=== PATIENT | male | born 1960 | race Caucasian/White ===

== ENCOUNTER 2017-05-22 07:14 | Inpatient (IN) | payer OTHER ==
--- NOTE | 2017-05-15 16:53 | HP ---
HISTORY AND PHYSICAL: DATE OF ADMISSION/SURGERY: 05/22/17 DATE OF OFFICE VISIT: 05/14/17 SURGEON: Michelle Levi MD * (DICTATED BY NIKKO GONZALEZ) PROCEDURE: Right total hip arthroplasty. CHIEF COMPLAINT: Right hip pain. HISTORY OF PRESENT ILLNESS: Mr. Dc is a 57-year-old gentleman with complaints of right hip pain secondary to end-stage osteoarthritis. He has failed conservative treatment and elected to proceed with a right total hip arthroplasty, which is scheduled for 05/22/[address] Levi. PAST MEDICAL HISTORY: Hypertension, obesity. PAST SURGICAL HISTORY: Tonsillectomy, adenoidectomy. CURRENT MEDICATIONS: 1. Percocet. 2. Lisinopril 20 mg daily. 3. Chlorthalidone 25 mg half tab daily. 4. Multivitamin. ALLERGIES: None. FAMILY HISTORY: Hypertension. SOCIAL HISTORY: This is a 57-year-old gentleman. He lives with his . He does not smoke, use drugs, or alcohol. REVIEW OF SYSTEMS: A complete 14-point review of systems was reviewed with the patient, it was all negative and noncontributory. PHYSICAL EXAMINATION GENERAL: He is well developed, well nourished, in no acute distress. VITAL SIGNS: He stands 6 feet 3 inches tall, weighs 223 pounds. His blood pressure is 138/96, his heart rate is 68. HEENT: Normocephalic, atraumatic. NECK: Supple. No palpable lymph nodes. PULMONARY: Lungs are clear to auscultation bilaterally. CARDIO: Regular rate and rhythm. Strong S1, S2. ABDOMEN: Soft, nontender, and nondistended. MUSCULOSKELETAL: Right lower extremity, the skin is intact. There are no open wounds or abrasions. He has decreased internal and external rotation of the right hip. Negative straight leg raise. 2+ dorsalis pedis pulses. His lower extremity muscle group strengths are intact at 5/5. He has intact sensation. He walks with an antalgic-type gait favoring his right hip. NEUROLOGICAL: He is alert and oriented x3. Cranial nerves II through XII are intact. ASSESSMENT AND PLAN: Mr. Dc is a 57-year-old gentleman with complaints of right hip pain secondary to end-stage osteoarthritis. He has failed conservative management and elected to proceed with a right total hip arthroplasty, which is scheduled for 05/22/17with Dr. Levi. Dr. Levi discussed the risks and benefits of the surgery at today's visit and all of his questions were answered. Coumadin, Colace, and Percocet were sent to his pharmacy for postoperative pain control and DVT prophylaxis. He will follow with Dr. Levi 2 weeks after the surgery. NIKKO GONZALEZ [id number]/[facility] #: [id number] NBA
[~2017-05-22 07:14] MED LIST: Buffered Lidocaine 0.9% SYRIN* 5 ML/SYR SYRINGE INTRADERM ONE; Famotidine IV* 10 MG/ML 2 ML (20 mg) IV ONE; Gabapentin CAP(*) 300 MG PO ONE
[2017-05-22] MEDS ORDERED: ceFAZolin 2 GM PREMIX (*) 2 GM/50 ML BAG IVPB ONE (09:36)
[2017-05-22] MEDS ORDERED: Gabapentin CAP(*) 300 MG ONE (09:36)
[2017-05-22] MEDS ORDERED: Famotidine IV* 10 MG/ML 2 ML (20 mg) ONE (09:36)
[2017-05-22] MEDS ORDERED: Buffered Lidocaine 0.9% SYRIN* 5 ML/SYR SYRINGE ONE (09:36)
[2017-05-22] MEDS ORDERED: ceFAZolin 1 GM in Dextrose (*) 1 GM/50 ML BAG IVPB ONE (09:36)
[2017-05-22] MEDS ORDERED: KETAMINE HCL* 50 MG/ML 10 ML VIAL ONE (10:04)
[2017-05-22] MEDS ORDERED: fentaNYL* 50 MCG/ML 2 ML VIAL (100 MCG VIAL) ONE (10:04)
[2017-05-22] MEDS ORDERED: Midazolam* 1 MG/ML 2 ML VIAL (2 MG) ONE ×3 (10:04→13:05)
[2017-05-22] MEDS ORDERED: Morphine PF AMP (0.5MG/ML)* 5 MG/10 ML AMP ONE (11:52)
[2017-05-22] MEDS ORDERED: Phenylephrine IV* 40 MCG/ML 10 ML SYRINGE ONE (12:45)
[2017-05-22] MEDS ORDERED: Phenylephrine INJ* 10 MG/ML 1 ML VIAL (10 MG) ONE ×2 (12:55→13:00)
[2017-05-22] MEDS ORDERED: Ondansetron INJ* 2 MG/ML VIAL ONE ×2 (13:25→18:12)
[2017-05-22] MEDS ORDERED: Ketorolac INJ* 30 MG/ML 1 ML VIAL ONE (13:25)
[2017-05-22] MEDS ORDERED: DiMENhydriNATE IV* 50 MG/ML VIAL ONE (13:25)
[2017-05-22] MEDS ORDERED: Dexamethasone IV* 4 MG/ML 1 ML (4 MG) ONE (13:25)
[2017-05-22] MEDS ORDERED: Propofol* 10 MG/ML 20 ML BTL IV PUSH ONE ×3 (13:25→14:45)
[2017-05-22] MEDS ORDERED: Glycopyrrolate IV* 0.2 MG/ML 1 ML VIAL ONE (13:28)
[2017-05-22] MEDS ORDERED: HYDROmorphone INJ* 1 MG/ML CARPUJECT SYRINGE IV PRN (13:40)
[2017-05-22] MEDS ORDERED: Naloxone* 0.4 MG/ML 1 ML VIAL IV PRN ×2 (13:40→13:49)
[2017-05-22] MEDS ORDERED: oxyCODONE/Acetamin 5/325 MG* TAB PO PRN (13:40)
[2017-05-22] MEDS ORDERED: DiMENhydriNATE IV* 50 MG/ML VIAL IV PUSH PRN (13:40)
[2017-05-22] MEDS ORDERED: Gabapentin CAP(*) 100 MG PO ONE ×2 (13:42→21:00)
[2017-05-22] MEDS ORDERED: Ondansetron INJ* 2 MG/ML VIAL IV PRN (13:49)
[2017-05-22] MEDS ORDERED: Nalbuphine* 20 MG/ML 1 ML VIAL IV PRN (13:49)
[2017-05-22] MEDS ORDERED: Magnesium Hydroxide LIQ* 30 ML UDC PO PRN (14:58)
[2017-05-22] MEDS ORDERED: Acetaminophen TAB* 325 MG PO PRN (14:58)
[2017-05-22] MEDS ORDERED: Bisacodyl SUPP* 10 MG SUPP PR PRN (14:58)
[2017-05-22] MEDS ORDERED: Polyethylene Glycol 3350* 17 GM PACKET PO PRN (14:58)
[2017-05-22] MEDS ORDERED: HYDROmorphone INJ* 1 MG/ML CARPUJECT SYRINGE ONE (15:12)
--- NOTE | 2017-05-22 15:30 | RAD ---
INDICATION: Right hip replacement COMPARISON: May 20, 2017 TECHNIQUE: A portable crosstable image of the right hip is submitted FINDINGS: The single image obtained for sizing the femoral stem is submitted. The acetabular component has been placed.
--- NOTE | 2017-05-22 17:04 | RAD ---
INDICATION: Right hip arthroplasty COMPARISON: Right hip May 22, 2017 TECHNIQUE: Portable AP and crosstable lateral views are submitted FINDINGS: There is completion of right hip breath plasty. The prosthetic components appear well seated. Incidental note is made of advanced osteoarthritis about the left hip. IMPRESSION: RIGHT HIP ARTHROPLASTY.
[2017-05-22] MEDS: Ibuprofen TAB* 600 MG PO SCH ×2 (19:22→20:27)
[2017-05-22] MEDS ORDERED: Warfarin TAB(*) 6 MG PO ONE (20:00)
[2017-05-22] MEDS ORDERED: DiMENhydriNATE IV* 50 MG/ML VIAL IV PUSH ONE (20:00)
[2017-05-22] MEDS ORDERED: Scopolamine 1.5 mg* PATCH TRANSDERM ONE (20:00)
[2017-05-22] MEDS: ceFAZolin 1 GM VIAL(*) 1 GM in NS 0.9% 50 ML* 50 ML IVPB SCH (21:47)
[2017-05-22] MEDS: Magnesium Hydroxide LIQ* 30 ML UDC PO SCH (21:54)
[2017-05-22] MEDS: Docusate CAP* 100 MG PO SCH (22:01)
[2017-05-22] MEDS: HYDROcodone/ACETAMIN 5-325 MG* 1 TAB PO PRN (22:34)
[2017-05-23] MEDS: Ibuprofen TAB* 600 MG PO SCH (02:49)
[2017-05-23] MEDS: HYDROcodone/ACETAMIN 5-325 MG* 1 TAB PO PRN (03:49)
[2017-05-23] MEDS: ceFAZolin 1 GM VIAL(*) 1 GM in NS 0.9% 50 ML* 50 ML IVPB SCH ×2 (04:42→11:50)
[2017-05-23] MEDS ORDERED: oxyCODONE TAB* 5 MG TAB PO PRN (05:49)
[2017-05-23] MEDS ORDERED: Ondansetron INJ* 2 MG/ML VIAL IV PRN (05:49)
[2017-05-23] MEDS ORDERED: Cyclobenzaprine TAB* 10 MG PO PRN (05:49)
[2017-05-23] MEDS ORDERED: Ondansetron TAB* 4 MG PO PRN (05:49)
[2017-05-23] MEDS ORDERED: Morphine INJ* 2 MG/ML 1 ML SYRINGE (TWO MG - NEW SYRINGE VERSION) IV PRN (05:49)
[2017-05-23] MEDS ORDERED: diPHENhydraMINE IV* 50 MG/ML 1 ml VIAL (BENADRYL) IV PRN (05:49)
[2017-05-23] MEDS ORDERED: oxyCODONE/Acetamin 5/325 MG* TAB PO PRN (05:49)
[2017-05-23 07:18] LABS: Hematocrit 31 % (42-52); Mean Platelet Volume 8 um3 (7.4-10.4); Platelet Count 273 10^3/ul (150-450)
[2017-05-23 07:23] LABS: INR 1.08 (0.77-1.02)
[2017-05-23] MEDS: Magnesium Hydroxide LIQ* 30 ML UDC PO SCH ×2 (07:58→19:37)
[2017-05-23] MEDS: oxyCODONE/Acetamin 5/325 MG* TAB PO PRN ×4 (08:02→19:54)
[2017-05-23] MEDS: Docusate CAP* 100 MG PO SCH ×2 (08:03→19:54)
[2017-05-23] MEDS: Chlorthalidone TAB* 50 MG PO SCH (08:03)
--- NOTE | 2017-05-23 08:56 | PN ---
Progress Note - Progress Note Date of Service: 05/23/17 SOAP: Subjective: 57 y/o male s/p R TKA 05/22/[address] Levi. VSS afebrile overnight. Patient comfortable, pain controlled Objective: General- Well appearing, NAD resting in bed comfortably MSK- surgical dressing intact, no induration/ erythema around dressing, +PF/DF b/l, neg homans, SITLT. Vital Signs Temp 98.3 F 05/23/17 11:49 Pulse 75 05/23/17 11:49 Resp 16 05/23/17 14:04 BP 126/74 05/23/17 11:49 Pulse Ox 97 05/23/17 11:49 Intake & Output 05/22/17 05/23/17 05/23/17 18:59 06:59 18:59 Intake Total 3100 1033 676 Output Total 375 575 Balance 2725 458 676 Weight 141 kg Intake: IV Fluids 3100 975 559 3GM CEFAZOLIN 100 LR 3000 975 559 IVPB 58 117 ABX - CEFAZOLIN 58 117 Oral 0 Output: River 375 575 Other: Estimated Blood Loss 100 Comment Assessment: Stable 57 y/o male s/p R TKA 05/22/[address] Levi. Plan: - DVT prophylaxis- coumadin dosed, INR subther, continue lovenox. - Continue PT - Possible D/C Home tomorrow
[2017-05-23] MEDS: Enoxaparin(*) 40 MG/0.4 ML SYR SUBCUT SCH (11:53)
[2017-05-23] MEDS ORDERED: Warfarin TAB(*) 4 MG PO ONE (17:00)
[2017-05-23] MEDS ORDERED: Lisinopril TAB* 10 MG PO SCH (18:00)
[2017-05-24] MEDS: oxyCODONE/Acetamin 5/325 MG* TAB PO PRN ×3 (00:08→12:54)
--- NOTE | 2017-05-24 02:45 | OP ---
DATE OF OPERATION: 05/22/17 - ROOM #342 DATE OF : 60 ATTENDING SURGEON: Michelle Levi MD POLICE INSPECTOR: NIKKO Avalos. Mr. Carrillo did help throughout the procedure with preparation of the leg, wound retraction, manipulation of the hip, and wound closure. ANESTHESIOLOGIST: Dr. Erickson. ANESTHESIA TYPE: Spinal. PRE-OP DIAGNOSES: Severe end-stage degenerative osteoarthritis of the right hip joint secondary to developmental dysplasia, morbid obesity. POST-OP DIAGNOSES: Severe end-stage degenerative osteoarthritis of the right hip joint secondary to developmental dysplasia, morbid obesity. OPERATIVE PROCEDURE: Right total hip arthroplasty with modifier for extended operative time due to morbid obesity. Acetabular subchondral cyst bone autograft with loose femoral head autograft. HARDWARE USED: This is [place] uncemented total hip hardware. For the cup, a trident Tritanium 62G, 3 screws were used to length 20, 20, and 15 mm. For the insert, a Titanium X3 0-degree polyethylene insert 44G. For the stem, an Accolade TMZF size 5.5 with a 132-degree neck. For the head, a Biolox delta ceramic V40 femoral head, 44 with a -2.53 adaptor sleeve. ESTIMATED BLOOD LOSS: 400 cc. COMPLICATIONS: None. SPECIMENS: Femoral head and acetabular reaming sent to pathology. BRIEF HISTORY/INDICATIONS: Mr. Dc is a 57-year-old gentleman with years of increasingly severe right hip pain. He failed conservative treatment with anti- inflammatories, pain medication, intraarticular injection, and physical therapy. He did agree to loose weight and lost 50 pounds for this procedure. Radiographs showed [id number] arthritis with dysplastic hips. Due to continued pain and decreased quality of life, the patient elected to undergo right total hip arthroplasty. Informed consent was obtained from the patient. He understood the risks of surgery included but were not limited to, bleeding infection, damage to nearby structures, continued pain, need for further surgery , intraoperative fracture, nerve palsy, hardware failure or loosening, stroke, heart attack, blood clot, and . He wished to proceed. The patient also understood due to his morbid obesity and young age, he was at increased risk of early loosening and failure of the implant. INTRAOPERATIVE FINDINGS: Intraoperatively, the patient was noted to have 10 cm part of the procedure more complex. His morbid obesity and size did add at least an hour to the operative time. The patient had shallow dysplastic acetabulum with extensive subchondral sclerosis and subchondral cyst formation in the anterior and superior weight-bearing portion of the acetabulum. He also had complete loss of cartilage along the femoral head. DESCRIPTION OF PROCEDURE: Mr. Dc was identified in the preanesthesia unit. His left lower extremity was marked as the correct operative side. Informed consent was signed and placed in the chart. The patient was taken to the operating room and placed under spinal anesthesia. A River catheter was placed. The patient was placed in the left lateral decubitus position on the peg board. All bony prominences were well-padded. Right lower extremity was prepped and draped in the usual sterile fashion. Preop time-out was made to correctly identify the patient's side and site. Appropriate perioperative antibiotics were given within 1 hour of incision. A 15-cm posterior hip incision was made with a 10 blade. Electrocautery was used to carefully dissect down through the subcutaneous fat, which was released 10 cm in width. Lateral fascial layer was incised in line with the skin incision using a new 10 blade. Charnley retractor was placed. The piriformis and conjoint tendons were identified on the posterolateral femur. This was elevated with electrocautery and tagged with #5 Ethibond. ____ _ was then used to make a posterolateral capsular flap and this was also tagged with #5 Ethibond. The hip was carefully dislocated. Lesser troch to center of the femoral head measured 65 mm. Oscillating saw was used to make the appropriate femoral neck cut. The femoral head was removed. The femur was carefully retracted anteriorly. After appropriate placement of retractors, the acetabulum was visualized. Long-handled knife was used to sharply remove any remaining labrum from the acetabulum. The acetabulum was noted to have extensive subchondral sclerosis and osteophyte formation. The acetabulum was dysplastic and shallow. Reamers were used sequentially ream up to a bleeding bone bed medially. The 61 reamer had good fit and stability. A 61 trial had satisfactory fit and appropriate anteversion abduction angle. A 62G Trident Titanium acetabulum was chosen as the final implant. In the superior and anterior weight bearing dome, there was subchondral cyst formation. Curette was used to clear any cystic debris. These areas were packed with autograft from the femoral head. The 62G acetabular cup was then passed into acetabulum without difficulty. There was good stability. Abduction angle and anteversion were deemed to be appropriate. Three screws were placed in the superoposterior quadrant for extra stability. These were 20 mm, 20 mm, and 15 mm. A Trident X3 0-degree polyethylene liner was chosen, 44D. This was impacted into the acetabulum without difficulty. Stability of the liner was checked and rechecked and noted to be stable. Next, attention was turned to the preparation of the proximal femur. A canal finder was used to enter the proximal femur. Proximal femur was sequentially broached up to a size 5.5. A 5.5 broach had excellent fit and stability. Anteversion was appropriate. A 44 +0 femoral head with a 132 neck trial was chosen. Lesser troch to center of the femoral head measured 65 mm. The hip was reduced and taken through a range of motion. The hip was stable in all positions. Leg length and soft tissue tension were appropriate. The hip was carefully dislocated. All trials were removed. Final implant chosen for the femur was an Accolade TMZF size 5.5 with a 132-degree neck angle. This was carefully impacted into the femoral canal. This final implant did sit up approximately 4 mm taller than the broach head. Therefore, a 44 - 2.5 ceramic femoral head and adapters were chosen as the final implants. These were impacted on to the femoral neck without difficulty. The lesser troch to center of the femoral head measured 66 mm. The hip was reduced and taken through range of motion. The hip was stable in all positions. Soft tissue tension and leg lengths were appropriate. The hip was copiously irrigated with sterile saline. Previously tagged tendons and capsules were reapproximated to the posterolateral femur through 2 trochanteric drill holes. The lateral fascial layer was closed using interrupted #1 Vicryls. The rest of the incision was closed in a layered fashion using 0 and 2- 0 Vicryls. Skin was closed using running 3-0 Monocryl and Dermabond. Sterile Adaptic, 4x4s, and paper tape were used to cover the incision. The patient's anesthesia was reversed without difficulty. He was neurovascularly intact in the PACU and stable. Intended weightbearing will be weightbearing as tolerated with posterior hip precautions. Intended DVT prophylaxis will be Coumadin with a Lovenox bridge. [id number]/[facility] #: [id number] [facility] SQUARE HOSPITALSolitario
[2017-05-24 06:24] LABS: Hematocrit 30 % (42-52); Hemoglobin 10.4 g/dl (14.0-18.0); Mean Platelet Volume 8 um3 (7.4-10.4); Platelet Count 244 10^3/ul (150-450)
[2017-05-24 06:29] LABS: INR 1.18 (0.77-1.02)
[2017-05-24] MEDS: Chlorthalidone TAB* 50 MG PO SCH (08:08)
[2017-05-24] MEDS: Docusate CAP* 100 MG PO SCH (08:08)
[2017-05-24] MEDS: Magnesium Hydroxide LIQ* 30 ML UDC PO SCH (08:09)
--- NOTE | 2017-05-24 09:28 | PN ---
Progress Note - Progress Note Date of Service: 05/24/17 SOAP: Subjective: [Pt doing well. Minimal c/o discomfort. Has been moving about quite a lot and OOB. Has done stairs with PT. Has had BM. Denies SOB, CP, dizziness. Feels ready to go home.] Objective: [A and O x 3, NAD, VSS Pt seated in chair and was able to transfer himself to bed for dressing change. R hip dressing changed, Incision benign. No erythema or drainage. Calf soft, NT. Distal gross motor and NV function intact. Vital Signs: Temp Pulse Resp BP Pulse Ox 98 F 72 16 123/57 100 05/24/17 07:37 05/24/17 07:37 05/24/17 08:07 05/24/17 07:37 05/24/17 08:00 Laboratory Results - last 24 hr 05/24/17 05/24/17 05:57 05:57 Hgb 10.4 L Hct 30 L Plt Count 244 MPV 8 INR (Anticoag Therapy) 1.18 H ] Assessment: [57 yo s/p R ANGIE POD #2 doing well] Plan: [Con't pain management Coumadin 8 mg today, 8 mg tomorrow(Friday) D/C home today]
[2017-05-24 11:57] VITALS: BP 125/59
[2017-05-24] MEDS: Enoxaparin(*) 40 MG/0.4 ML SYR SUBCUT SCH (12:16)
[2017-05-24] MEDS ORDERED: Warfarin TAB(*) 4 MG PO ONE (17:00)
[2017-05-25] MEDS ORDERED: Scopolamine PATCH Remove* 1 NOTE MISC PATCH OFF ONE (20:00)
--- NOTE | 2017-05-27 01:14 | DS ---
DISCHARGE SUMMARY: DATE OF ADMISSION: 05/22/17 DATE OF DISCHARGE: 05/24/17 PROVIDER: Michelle Levi MD. ADMITTING PHYSICIAN: Dr. Levi.* (DICTATED BY NIKKO ALVAREZ) ADMITTING DIAGNOSES: Right hip osteoarthritis, morbid obesity, hypertension. DISCHARGE DIAGNOSES: Status post right total hip arthroplasty, morbid obesity, hypertension. PROCEDURE: Right total hip arthroplasty. CONSULTANTS: Physial Therapy and Occupational Therapy. BRIEF HISTORY: Mr. Dc is a 57-year-old male with severe degenerative osteoarthritis of his right hip. He failed conservative treatment measures and elected to undergo a right total hip arthroplasty on 05/22/[address] Levi. HOSPITAL COURSE: Mr. Dc was admitted to [facility] on . He underwent an uncomplicated right total hip arthroplasty. Postoperatively , he recovered on the short stay surgical unit. His River catheter was removed on postoperative day 1 and he was able to urinate on his own. Postoperative day 2, he was able to have a bowel movement. He advanced to a regular diet without difficulty. His pain was well controlled with Percocet and he was restarted on his home medications. His vital signs and labs remained stable. He was able to bear weight as tolerated on the right lower extremity. He advanced appropriately with physical therapy and occupational therapy. His DVT prophylaxis was bridged with Lovenox and Coumadin, although he did not reach therapeutic INR range during his hospital stay. By postoperative day #2, he was orthopedically and medically stable for discharge to home with services. PHYSICAL EXAMINATION: General: On examination, the patient is noted to be calm and cooperative in no acute distress. He is alert and oriented x3. Vital signs on day of discharge, temperature 98 degrees Fahrenheit, pulse rate 72, respiratory rate 16, O2 sat 100% on room air, blood pressure 123/57. Extremities examination of the right lower extremity demonstrates the dressing overlying the right hip which is clean, dry and intact. His thigh is compressible and there is minimal swelling. Distally, he has +2 palpable DP pulse: 5/5 ankle dorsiflex and plantar flexion. He is able to maintain a quad contraction. Sensation is intact to light touch. Calf is soft and nontender. LABORATORY DATA/STUDIES: On day of discharge, H and H was 10.4/30, INR 1.18. Radiograph: Postoperative radiograph of the right hip demonstrated right total hip arthroplasty with satisfactory prosthesis placement and no acute bony abnormalities. DISCHARGE MEDICATIONS: 1. Lisinopril 20 mg daily. 2. Chlorthalidone 25 mg half tab daily. 3. Multivitamin. 4. Percocet 5/325 one to two tabs p.o. q. 4 to 6 hours p.r.n. pain. 5. Coumadin 2 mg take as directed. The patient will take 8 mg on day of discharge 05/24/17 and 8 mg the following day 05/25/17. 6. Colace 100 mg p.o. t.i.d. p.r.n. constipation. CONDITION ON DISCHARGE: Stable. DISCHARGE INSTRUCTIONS: Mr. Dc is a 57-year-old male postoperative day #2 , status post right total hip arthroplasty which was uncomplicated. He is orthopedically and medically stable to be discharged home with services. He has stable vital signs and labs. He has been restarted on his home medications. He will take 8 mg of Coumadin on day of discharge, Friday, and 8 mg the following day, Friday. He will have his INR rechecked on Friday. He will have INR draws on Mondays and with visiting nurse services. He will remain weightbearing as tolerated on the right lower extremity and have home physical therapy twice a day. He will take Percocet for pain control and Colace up to 3 times a day for constipation. He will follow up with Dr. Levi in the office in approximately 2 weeks for incision check. He was instructed to call Dr. Levi or go immediately to the ER should he develop any new fever, chills, incision pain, redness or drainage. He was instructed to go immediately to the ER should he develop chest pain or shortness of breath. NIKKO ALVAREZ [id number]/[facility] #: [id number] NBA
== END 2017-05-24 13:40 | disposition home or self-care (01) | DRG 301 ==
LOC: AA 09:31 → SSU 18:04
PROVIDERS: ADMIT Orthopaedic Surgery Adult Reconstructive Orthopaedic Surgery; ATTEND Orthopaedic Surgery Adult Reconstructive Orthopaedic Surgery
PROC: 0QB40ZZ Excision of Right Acetabulum, Open Approach (ICD-10-PCS; 2017-05-22)
PROC: 0SR904A Replacement of Right Hip Joint with Ceramic on Polyethylene Synthetic Substitute, Uncemented, Open Approach (ICD-10-PCS; 2017-05-22)
PROC: 0QU407Z Supplement Right Acetabulum with Autologous Tissue Substitute, Open Approach (ICD-10-PCS; principal; 2017-05-22 11:45)
DX: M16.11 Unilateral primary osteoarthritis, right hip (principal); E66.01 Morbid (severe) obesity due to excess calories; I10 Essential (primary) hypertension; Z68.38 Body mass index [BMI] 38.0-38.9, adult; Z82.49 Family history of ischemic heart disease and other diseases of the circulatory system; Q65.89 Other specified congenital deformities of hip; M85.451 Solitary bone cyst, right pelvis; M24.851 Other specific joint derangements of right hip, not elsewhere classified; M25.751 Osteophyte, right hip
CPT/HCPCS: 36415; 62323; 80048; 85014; 85018; 85049; 85610; A9270-GY; C1713; C1776; J0690; J1100; J1170; J1240; J1650; J1885; J2250; J2405; J2704; J3010

== ENCOUNTER 2017-07-24 09:13 | Inpatient (IN) | payer OTHER ==
--- NOTE | 2017-07-11 20:54 | HP ---
HISTORY AND PHYSICAL: DATE OF SURGERY/ADMISSION: 07/24/17 DATE OF OFFICE VISIT: 07/11/17 SURGEON: Michelle Levi MD* (dictated by NIKKO Gonzalez). PROCEDURE: Left total hip arthroplasty. CHIEF COMPLAINT: Left hip pain. HISTORY OF PRESENT ILLNESS: Mr. Dc is a 57-year-old gentleman with continued complaints of left hip pain secondary to end-stage osteoarthritis. He has failed conservative management and elected to proceed with a left total hip arthroplasty, which is scheduled for 07/24/[address] Levi. PAST MEDICAL HISTORY: Hypertension and obesity. PAST SURGICAL HISTORY: Tonsillectomy, adenoidectomy, right total hip arthroplasty. CURRENT MEDICATIONS: 1. Lisinopril 20 mg daily. 2. Chlorthalidone 25 mg daily. 3. Multivitamin. 4. Percocet. 5. Colace. ALLERGIES: None. FAMILY HISTORY: Hypertension. SOCIAL HISTORY: He is a 57-year-old gentleman. He lives with his . He does not smoke, use drugs or alcohol. REVIEW OF SYSTEMS: A complete 14-point review of systems was reviewed with the patient, was all negative or noncontributory. PHYSICAL EXAMINATION GENERAL: He is well-developed, well-nourished, in no acute distress. VITAL SIGNS: He stands 6 feet 3 inches tall, weighs 325 pounds, his blood pressure is 130/92, his heart rate is 92. HEENT: Normocephalic, atraumatic. NECK: Supple. No palpable lymph nodes. PULMONARY: The lungs are clear to auscultation bilaterally. CARDIO: Regular rate and rhythm. Strong S1, S2. ABDOMEN: Soft, nontender, nondistended. NEUROLOGIC: He is alert and oriented x3. Cranial nerves II through XII are intact. MUSCULOSKELETAL: Left lower extremity, the skin is intact. There are no open wounds or abrasions. He walks with an antalgic type gait favoring his left hip. He has decreased internal and external rotation of the left hip. He has 2 + dorsalis pedis pulses. Intact sensation in his lower extremities. Muscle group strengths are intact at 5/5. ASSESSMENT AND PLAN: Mr. Dc is a 57-year-old gentleman with end-stage osteoarthritis of the left hip. He has failed conservative management and elected to proceed with a left total hip arthroplasty, which is scheduled for with Dr. Levi. Dr. Levi discussed the risks and benefits of the surgery at today's visit and all of his questions were answered. He will follow with Dr. Levi in 2 weeks after the surgery. NIKKO GONZALEZ [id number]/[facility] #: [id number] NBA
[~2017-07-24 09:13] MED LIST changes: +Midazolam* 1 MG/ML 5 ML VIAL (5 MG) ONE; +fentaNYL* 50 MCG/ML 2 ML VIAL (100 MCG VIAL) ONE
[2017-07-24] MEDS ORDERED: Buffered Lidocaine 0.9% SYRIN* 5 ML/SYR SYRINGE ONE (09:24)
[2017-07-24] MEDS ORDERED: Gabapentin CAP(*) 300 MG ONE (09:24)
[2017-07-24] MEDS ORDERED: Famotidine IV* 10 MG/ML 2 ML (20 mg) ONE (09:24)
[2017-07-24] MEDS ORDERED: ceFAZolin 1 GM in Dextrose (*) 1 GM/50 ML BAG IVPB ONE (09:27)
[2017-07-24] MEDS ORDERED: CEFAZOLIN 2 GM/20 ML IVPB ONE ×2 (10:00)
[2017-07-24] MEDS ORDERED: ceFAZolin 1 GM VIAL(*) 2 GM in NS 0.9% 50 ML* 50 ML IVPB ONE (10:00)
[2017-07-24] MEDS ORDERED: Scopolamine 1.5 mg* PATCH ONE (10:55)
[2017-07-24] MEDS ORDERED: Scopolamine 1.5 mg* PATCH TRANSDERM SCH (11:00)
[2017-07-24] MEDS ORDERED: Morphine PF AMP (0.5MG/ML)* 5 MG/10 ML AMP ONE ×2 (11:00→11:02)
[2017-07-24] MEDS ORDERED: Ondansetron INJ* 2 MG/ML VIAL ONE (12:05)
[2017-07-24] MEDS ORDERED: Dexamethasone IV* 4 MG/ML 1 ML (4 MG) ONE (12:05)
[2017-07-24] MEDS ORDERED: DiMENhydriNATE IV* 50 MG/ML VIAL ONE (12:05)
[2017-07-24] MEDS ORDERED: Propofol* 10 MG/ML 20 ML BTL IV PUSH ONE ×5 (12:05→14:15)
[2017-07-24] MEDS ORDERED: Ketorolac INJ* 30 MG/ML 1 ML VIAL ONE (12:05)
[2017-07-24] MEDS ORDERED: EPHEDrine (Pressors)* 50 MG/ML VIAL ONE (12:35)
[2017-07-24] MEDS ORDERED: Acetaminophen TAB* 325 MG PO PRN ×2 (12:38→13:08)
[2017-07-24] MEDS ORDERED: Cyclobenzaprine TAB* 10 MG PO PRN (12:38)
[2017-07-24] MEDS ORDERED: Magnesium Hydroxide LIQ* 30 ML UDC PO PRN (12:38)
[2017-07-24] MEDS ORDERED: Polyethylene Glycol 3350* 17 GM PACKET PO PRN (12:38)
[2017-07-24] MEDS ORDERED: Bisacodyl SUPP* 10 MG SUPP PR PRN (12:38)
[2017-07-24] MEDS ORDERED: Phenylephrine INJ* 10 MG/ML 1 ML VIAL (10 MG) ONE (12:51)
[2017-07-24] MEDS ORDERED: oxyCODONE TAB* 5 MG TAB PO PRN (13:08)
[2017-07-24] MEDS ORDERED: DiMENhydriNATE IV* 50 MG/ML VIAL IV PUSH PRN (13:08)
[2017-07-24] MEDS ORDERED: Naloxone* 0.4 MG/ML 1 ML VIAL IV PRN ×2 (13:08→13:10)
[2017-07-24] MEDS ORDERED: HYDROmorphone INJ* 1 MG/ML CARPUJECT SYRINGE IV PRN (13:08)
[2017-07-24] MEDS ORDERED: Nalbuphine* 20 MG/ML 1 ML VIAL IV PRN (13:10)
[2017-07-24] MEDS ORDERED: oxyCODONE/Acetamin 5/325 MG* TAB PO PRN (13:14)
[2017-07-24] MEDS ORDERED: fentaNYL* 50 MCG/ML 2 ML VIAL (100 MCG VIAL) ONE (13:49)
[2017-07-24] MEDS ORDERED: Bupivacaine 0.5% SDV PF* 10-30ML VIAL ONE (14:31)
--- NOTE | 2017-07-24 14:43 | RAD ---
Indication: Left hip replacement. Single view of left hip and single view the pelvis demonstrates left femoral reamer and acetabular cup in place. Acetabular component appears to be well seated. IMPRESSION: Control films for left hip replacement. NBA
[2017-07-24] MEDS ORDERED: Warfarin TAB(*) 6 MG PO ONE (17:00)
--- NOTE | 2017-07-24 17:13 | RAD ---
Indication: Postop LEFT total hip replacement. Comparison: June 25, 2017 Technique: Low AP pelvis and AP and crosstable lateral views LEFT hip. Report: LEFT total hip prosthesis in place with normal alignment. Negative for periprosthetic fracture. Overlying soft tissue edema and subcutaneous emphysema. IMPRESSION: Unremarkable immediate postop appearance of the LEFT total hip prosthesis.
[2017-07-24 17:53] LABS: Urine Appearance Cloudy; Urine Blood Negative (Negative); Urine Color Yellow; Urine Ketones Trace (Negative); Urine Protein 1+(30 mg/dL) (Negative); Urine Specific Gravity 1.026 (1.010-1.030); Urine Urobilinogen Negative (Negative)
[2017-07-24] MEDS ORDERED: Lisinopril TAB* 10 MG PO SCH (18:00)
[2017-07-24] MEDS: ceFAZolin 1 GM in Dextrose (*) 1 GM/50 ML BAG IVPB SCH (20:07)
[2017-07-24] MEDS: Ibuprofen TAB* 600 MG PO SCH (20:10)
[2017-07-24] MEDS: Magnesium Hydroxide LIQ* 30 ML UDC PO SCH (20:11)
[2017-07-24] MEDS: Docusate CAP* 100 MG PO SCH (20:11)
--- NOTE | 2017-07-24 23:24 | CONS ---
CC: Dr. Michelle Levi; Dr. Ramon Phipps* CONSULTATION REPORT: DATE OF CONSULT: 07/24/17 DATE OF ADMISSION: 07/24/17 PRIMARY CARE PROVIDER: Ramon Phipps MD ATTENDING PHYSICIAN: Dr. Amalia Tabares (dictated by Paula Carbajal NP) REASON FOR CONSULTATION: Co-medical management in a patient with a history of hypertension and obesity. HISTORY OF PRESENT ILLNESS: Mr. Dc is a 57-year-old male with past medical history significant for hypertension, obesity, basal cell carcinoma and osteoarthritis who presented to the hospital today for an elective left total hip arthroplasty with Dr. Michelle Levi. Preoperatively, the patient states he has been in his usual state of health, feeling well. Denies any recent fevers, chills, chest pain, shortness of breath, nausea, vomiting or diarrhea. Postoperatively, he is doing well. Denies any pain. Hospitalists were asked to assist with co-medical management of this patient during his hospitalization. PAST MEDICAL HISTORY: 1. Hypertension. 2. Obesity. 3. Basal cell carcinoma on the sternum. 4. Osteoarthritis. PAST SURGICAL HISTORY: 1. Status post tonsillectomy and adenoidectomy. 2. Status post right total hip arthroplasty. 3. Status post excision of basal cell carcinoma. HOME MEDICATIONS: Include: 1. Lisinopril 20 mg oral every evening. 2. Chlorthalidone 25 mg oral every morning. 3. Multivitamin 1 tablet oral daily. 4. Tylenol as needed for pain. ALLERGIES: None. FAMILY HISTORY: The patient's mother and sister have a history of hypertension and the father passed after a pulmonary embolus postoperatively. Paternal grandmother with a history of pancreatic cancer. Paternal grandfather with a history of prostate cancer and heart problems. Maternal grandfather with a history of stroke, paternal uncle with a history of coronary artery disease and a maternal uncle with a history of a stroke. SOCIAL HISTORY: The patient denies tobacco, alcohol, recreational drug use. He lives with his . His , Kayleen Dc, will be his surrogate decision maker in the event he is unable to make decisions for himself. REVIEW OF SYSTEMS: I performed an 11-point review of systems. All the pertinent positives and negatives are mentioned in the history of present illness. Remaining review of systems are negative. PHYSICAL EXAM: Vital Signs: Temperature 98.3, heart rate 56, respiratory rate 14, O2 sat 99% on room air, blood pressure 127/76. General Appearance: The patient is alert, pleasant, appears to be in no acute distress. Head: Normocephalic, atraumatic. ENT: Pupils are equal and reactive to light. Extraocular movements are intact. Neck: Supple. Cardiovascular: Regular rate and rhythm. S1, S2 present. There are no murmurs, rubs or gallops heard. Respiratory: There is no accessory muscle use. Lungs: Clear to auscultation bilateral. Extremities: No lower extremity edema. DP and PT pulses are 2+ and symmetric. Abdomen: Soft, nontender, nondistended. Bowel sounds present x4. Musculoskeletal: There is no clubbing or cyanosis noted. The patient exhibits good strength in all extremities. He is able to dorsi and plantarflex bilateral. Skin: There is a dressing to his left hip that is clean , dry and intact. Neurological: Cranial nerves II through XII are grossly intact. The patient moves all extremities. Psychological: The patient is calm and cooperative. DIAGNOSTIC STUDIES/LAB DATA: Preoperative labs from 07/11/17: White blood cell count 9.1, hemoglobin 13.4, hematocrit 39, platelet count 292. Sodium 136 , potassium 4.2, chloride 101, CO2 29, BUN 18, creatinine 0.78, glucose 91. IMPRESSION: Mr. Dc is a 57-year-old male with past medical history significant for hypertension, obesity, basal cell carcinoma who presented to the hospital for an elective left total hip arthroplasty with Dr. Levi. Hospitalists were asked to assist with the co-medical management of this patient during his hospitalization. ASSESSMENT/PLAN: 1. Status post left total hip arthroplasty, postop day. Management will be per Orthopedic Surgery. The patient will have physical therapy and occupational therapy. Urinary catheter will be removed in the morning. Will be placed on a pain medication regimen in addition to a bowel regimen. 2. Hypertension. The patient's blood pressures have been a little labile anywhere from the 100 systolics to the 130s. We will hold his evening lisinopril and his morning chlorthalidone and resume accordingly in the morning. 3. Obesity. The patient's BMI is 40. 4. Basal cell carcinoma. Continue to follow with primary. 5. Fluids, electrolytes and nutrition. The patient will be on a clear liquid, advance diet as tolerated to regular. 6. DVT prophylaxis. The patient will be on Lovenox bridge to warfarin. 7. Code status. Full code. 8. Disposition. Inpatient disposition per Orthopedic Surgery. TIME SPENT: Time spent for this consultation was approximately 60 minutes, greater than half of that was spent with the patient and his discussing medications, past medical history, the events leading up to his arrival today, performing a physical examination. The case has been reviewed with the attending, Dr. Tabares, who agrees with the plan of care. Reviewed by JASON GARCIA-Miko 07/26/17 1733 [id number]/[facility] #: [id number] NBA
[2017-07-25] MEDS: Ibuprofen TAB* 600 MG PO SCH ×2 (02:27→07:50)
[2017-07-25] MEDS ORDERED: oxyCODONE/Acetamin 5/325 MG* TAB PO PRN (04:00)
[2017-07-25] MEDS ORDERED: Ondansetron INJ* 2 MG/ML VIAL IV PRN (04:00)
[2017-07-25] MEDS ORDERED: Ondansetron TAB* 4 MG PO PRN (04:00)
[2017-07-25] MEDS ORDERED: Morphine INJ* 2 MG/ML 1 ML CARPUJECT IV PRN (04:00)
[2017-07-25] MEDS ORDERED: oxyCODONE TAB* 5 MG TAB PO PRN (04:00)
[2017-07-25] MEDS ORDERED: diPHENhydraMINE IV* 50 MG/ML 1 ml VIAL (BENADRYL) IV PRN (04:00)
[2017-07-25] MEDS: ceFAZolin 1 GM in Dextrose (*) 1 GM/50 ML BAG IVPB SCH ×2 (04:04→12:48)
[2017-07-25 05:58] LABS: Hematocrit 34 % (42-52); Hemoglobin 11.3 g/dl (14.0-18.0); Mean Platelet Volume 8 um3 (7.4-10.4); Platelet Count 234 10^3/ul (150-450)
[2017-07-25] MEDS: oxyCODONE/Acetamin 5/325 MG* TAB PO PRN ×4 (06:04→22:13)
[2017-07-25 06:07] LABS: INR 1.05 (0.77-1.02)
[2017-07-25 06:13] LABS: EGFR Non-African American 98.2 (>60)
[2017-07-25] MEDS: Magnesium Hydroxide LIQ* 30 ML UDC PO SCH ×2 (07:49→22:13)
[2017-07-25] MEDS: Docusate CAP* 100 MG PO SCH ×2 (07:50→22:13)
[2017-07-25] MEDS: Chlorthalidone TAB* 50 MG PO SCH (07:51)
[2017-07-25] MEDS ORDERED: Chlorthalidone TAB* 50 MG PO SCH (09:00)
[2017-07-25] MEDS: Enoxaparin(*) 40 MG/0.4 ML SYR SUBCUT SCH (11:30)
--- NOTE | 2017-07-25 11:37 | PN ---
Progress Note - Progress Note Date of Service: 07/25/17 SOAP: Subjective: 57 y/o male L ANGIE s/p by Dr. Levi 07/24. VSS, afebrile overnight. Patient with no complaints, pain controlled well. no questions. agree with D/c tomorrow Objective: General- Well appearing, NAD, AO sitting in bed comfortably. MSK- LLE- DF/PF = b/l, PT 2+, negative homans sign , dressing intact over L hip , no induration, erythema. Vital Signs Temp 97.9 F 07/25/17 02:59 Pulse 65 07/25/17 08:09 Resp 16 07/25/17 11:30 BP 122/76 07/25/17 08:09 Pulse Ox 99 07/25/17 08:09 Intake & Output 07/24/17 07/25/17 07/25/17 18:59 06:59 18:59 Intake Total 4000 1842 225 Output Total 400 1225 Balance 3600 617 225 Weight 145.422 kg Intake: IV Fluids 3000 1002 ABX - CEFAZOLIN 55 LR 3000 947 Oral 1000 840 225 Output: Urine 450 River 400 775 Other: # Bowel Movements 0 Assessment: Stable 57 y/o male L ANGIE s/p by Dr. Levi 07/24. Plan: - DVT prophylaxis- lovenox, coumadin 6mg tonight. - Continue PT/ OT - Follow up with Dr. Levi within 10-14 days - H&H - stable - post-op IV ABX - running. - Continue current pain regimen. Active Medications Generic Name Dose Route Start Last Admin Trade Name Gonzálezq PRN Reason Stop Dose Admin Acetaminophen 650 mg 07/24/17 12:38 Tylenol Tab* PO Q4H PRN PAIN OR TEMPERATURE Bisacodyl 10 mg 07/24/17 12:38 Dulcolax Supp* TN DAILY PRN constipation Chlorthalidone 25 mg 07/25/17 09:00 07/25/17 07:51 Hygroton Tab* PO 25 mg DAILY WEN Administration Cyclobenzaprine HCl 10 mg 07/24/17 12:38 Flexeril Tab* PO TID PRN SPASMS Diphenhydramine HCl 12.5 mg 07/25/17 04:00 Benadryl Iv* IV Q6H PRN PRURITIS Docusate Sodium 100 mg 07/24/17 21:00 07/25/17 07:50 Colace Cap* PO 100 mg BID WEN Administration Enoxaparin Sodium 40 mg 07/25/17 12:00 07/25/17 11:30 Lovenox(*) SUBCUT 40 mg Q24H WEN Administration Cefazolin Sodium/Dextrose 1 gm in 50 mls @ 200 mls/hr 07/24/17 20:00 04:04 Kefzol 1 Gm In Dextrose Duplex (*) IVPB 07/25/17 12:14 200 mls/hr Q8H WEN Administration Lactulose 30 ml 07/24/17 12:38 Lactulose* PO Q6H PRN constipation Lisinopril 10 mg 07/25/17 18:00 Prinivil Tab* PO QPM WEN Magnesium Hydroxide 30 ml 07/24/17 21:00 07/25/17 07:49 Milk Of Magnesia Liq* PO 30 ml BID WEN Administration Magnesium Hydroxide 30 ml 07/24/17 12:38 Milk Of Magnesia Liq* PO Q6H PRN constipation Morphine Sulfate 2 mg 07/25/17 04:00 Morphine Inj (Syringe)* IV Q2H PRN PAIN Naloxone HCl 0.08 mg 07/24/17 13:08 Narcan* IV 07/25/17 13:07 Q2M PRN severe induced resp depression Ondansetron HCl 4 mg 07/25/17 04:00 Zofran Inj* IV Q6H PRN nausea Ondansetron HCl 4 mg 07/25/17 04:00 Zofran Tab* PO Q6H PRN NAUSEA Oxycodone HCl 10 mg 07/25/17 04:00 Roxycodone Tab* PO Q4H PRN SEVERE PAIN Oxycodone/Acetaminophen 2 tab 07/25/17 04:00 07/25/17 11:30 Percocet 5/325 Tab* PO 2 tab Q4H PRN Administration PAIN Oxycodone/Acetaminophen 1 tab 07/25/17 04:00 Percocet 5/325 Tab* PO Q4H PRN PAIN Polyethylene Glycol/Electrolytes 17 gm 07/24/17 12:38 Miralax* PO DAILY PRN Constipation Scopolamine 1 patch 07/24/17 11:00 07/24/17 10:58 Transderm-Scop 1.5 Mg Patch* TRANSDERM 1 patch Q72H WEN Administration Warfarin Sodium 6 mg 07/25/17 17:00 Coumadin Tab(*) PO 07/25/17 17:01 ONCE@1700 [facility] Protocol
--- NOTE | 2017-07-25 15:52 | PN ---
Subjective Date of Service: 07/25/17 Interval History: Patient seen and examined at bedside. Denies fever, chills, lightheadedness or dizziness, chest discomfort, shortness of breath, N/V/D. Pt is urinating without difficulty since urinary catheter was removed. Pt states that pain is controlled. Family History: Unchanged from Admission Social History: Unchanged from Admission Past Medical History: Unchanged from Admission Objective Active Medications: Acetaminophen (Tylenol Tab*) 650 mg PO Q4H PRN Reason: PAIN OR TEMPERATURE Bisacodyl (Dulcolax Supp*) 10 mg MS DAILY PRN Reason: constipation Chlorthalidone (Hygroton Tab*) 25 mg PO DAILY WEN Cyclobenzaprine HCl (Flexeril Tab*) 10 mg PO TID PRN Reason: SPASMS Diphenhydramine HCl (Benadryl Iv*) 12.5 mg IV Q6H PRN Reason: PRURITIS Docusate Sodium (Colace Cap*) 100 mg PO BID WEN Enoxaparin Sodium (Lovenox(*)) 40 mg SUBCUT Q24H WEN Lactulose (Lactulose*) 30 ml PO Q6H PRN Reason: constipation Lisinopril (Prinivil Tab*) 10 mg PO QPM WEN Magnesium Hydroxide (Milk Of Magnesia Liq*) 30 ml PO BID WEN Magnesium Hydroxide (Milk Of Magnesia Liq*) 30 ml PO Q6H PRN Reason: constipation Morphine Sulfate (Morphine Inj (Syringe)*) 2 mg IV Q2H PRN Reason: PAIN Ondansetron HCl (Zofran Inj*) 4 mg IV Q6H PRN Reason: nausea Ondansetron HCl (Zofran Tab*) 4 mg PO Q6H PRN Reason: NAUSEA Oxycodone HCl (Roxycodone Tab*) 10 mg PO Q4H PRN Reason: SEVERE PAIN Oxycodone/Acetaminophen (Percocet 5/325 Tab*) 2 tab PO Q4H PRN Reason: PAIN Oxycodone/Acetaminophen (Percocet 5/325 Tab*) 1 tab PO Q4H PRN Reason: PAIN Pharmacy Profile Note (Coumadin Daily Reminder*) 1 note FOLLOW UP 1700 WEN Polyethylene Glycol/Electrolytes (Miralax*) 17 gm PO DAILY PRN Reason: Constipation Scopolamine (Transderm-Scop 1.5 Mg Patch*) 1 patch TRANSDERM Q72H WEN Warfarin Sodium (Coumadin Tab(*)) 6 mg PO ONCE@1700 WEN Stop: 07/25/17 17:01 Vital Signs - 8 hr 07/25/17 07/25/17 07/25/17 07:55 08:09 11:20 Temperature 98.6 F Pulse Rate 65 72 Respiratory 16 14 16 Rate Blood Pressure 122/76 130/77 (mmHg) O2 Sat by Pulse 99 97 Oximetry 07/25/17 07/25/17 07/25/17 11:30 14:07 15:08 Temperature 97.9 F Pulse Rate 82 Respiratory 16 16 16 Rate Blood Pressure 157/81 (mmHg) O2 Sat by Pulse 99 Oximetry Oxygen Devices in Use Now: None Appearance: NAD, sitting up in bed Ears/Nose/Mouth/Throat: Mucous Membranes Moist Respiratory: Symmetrical Chest Expansion and Respiratory Effort, Clear to Auscultation Cardiovascular: NL Sounds; No Murmurs; No JVD, RRR Abdominal: NL Sounds; No Tenderness; No Distention Extremities: No Edema Skin: No Rash or Ulcers Neurological: Alert and Oriented x 3, NL Muscle Strength and Tone Lines/Tubes/Other Access: Clean, Dry and Intact Peripheral IV - site benign Nutrition: Taking PO's Result Diagrams: 07/25/17 05:45 07/25/17 05:46 Assess/Plan/Problems-Billing Assessment: Mr. Dc is a 57 yo male with PMH significant for HTN, obesity, basal cell CA and osteoarthritis who presented to the hospital for an elective left total hip arthroplasty with Dr. Levi. - Patient Problems (1) Status post total hip replacement, left Status: Acute Code(s): Z96.642 - PRESENCE OF LEFT ARTIFICIAL HIP JOINT SNOMED Code(s): 739715547843 Comment: - POD #1, management per ortho - HH stable, continue to trend - Continue PT, OT, pain management and bowel regimen (2) HTN (hypertension) Code(s): I10 - ESSENTIAL (PRIMARY) HYPERTENSION SNOMED Code(s): 35406564 Comment: - SBP 120-150's - Resume home chlorthalidone and lisinopril (3) Obesity Code(s): E66.9 - OBESITY, UNSPECIFIED SNOMED Code(s): 915314145 Comment: - BMI 40 (4) Basal cell carcinoma (BCC) Code(s): C44.91 - BASAL CELL CARCINOMA OF SKIN, UNSPECIFIED SNOMED Code(s): 936888129 Comment: - Continue to follow with PCP (5) DVT prophylaxis Code(s): AVF2882 - SNOMED Code(s): 789644521 Comment: - Lovenox bridge to warfarin (6) Full code status Code(s): Z78.9 - OTHER SPECIFIED HEALTH STATUS SNOMED Code(s): 217775537 Status and Disposition: Inpatient. Disposition per orthopedic surgery.
[2017-07-25] MEDS ORDERED: Warfarin TAB(*) 6 MG PO SCH (17:00)
[2017-07-25] MEDS ORDERED: Lisinopril TAB* 10 MG PO SCH (18:00)
--- NOTE | 2017-07-25 22:31 | OP ---
OPERATIVE REPORT: DATE OF OPERATION: 07/24/17 DATE OF : 60 ATTENDING SURGEON: Michelle Levi MD RESORT HOST: NIKKO Avalos Mr. Carrillo did help throughout the procedure with preparation of the leg, wound retraction, manipulat ion of the hip, and wound closure. ANESTHESIOLOGIST: Dr. Erickson. ANESTHESIA: Spinal. 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 POST-OP DIAGNOSES: Severe end-stage degenerative of the left hip joint, morbid obesity, acetabular s ubchondral cyst formation. OPERATIVE PROCEDURE: Left total hip arthroplasty. Acetabular bone grafting with femoral head autogr aft, additional modifier for morbid obesity. COMPLICATIONS: None. ESTIMATED BLOOD LOSS: 350 cc. SPECIMENS: Femoral head and acetabular reaming sent to pathology. HARDWARE USED: This is uncemented Shaan total hip arthroplasty hardware. For the cup, a 60F Trita nium multihole shell. Two cancellous bone screws of length 20 mm were used. For the insert, a 40F, Trident X3 0-degree polyethylene insert. For the femoral stem, an Accolade TMZF size 5.5 with a 132- degree neck angle . For the head, a 40 -2.5 Biolox ceramic V40 femoral head. BRIEF HISTORY/INDICATION: Mr. Dc is a 57-year-old gentleman with years of increasingly severe l eft hip pain. Radiographs showed [id number] arthritis secondary to developmental dysplasia. The p atient failed conservative treatment with anti-inflammatories, intraarticular injection, physical the rapy, and weight loss. He elected to undergo left total hip arthroplasty due to continued pain and d ecreased quality of life. Informed consent was obtained from the patient. He understood the risks of surgery included but were not limited to bleeding, infection, damage to nearby structures, continued pain, need for further mccord rgery, intraoperative fracture, nerve palsy, hardware failure or loosening, dislocation, leg length d iscrepancy, stroke, heart attack, blood clot, and . He wished to proceed. INTRAOPERATIVE FINDINGS: Intraoperatively, the patient was noted to have severe degeneration of the hip joint. There was complete loss of cartilage along the femoral head and acetabulum. The acetabul um was dysplastic and shallow. There was abnormal wear superolaterally due to chronic wear pattern o f dysplasia. At least 1 hour was added to the operative time secondary to the patient's morbid obesi ty. DESCRIPTION OF PROCEDURE: Mr. Dc was identified in the preanesthesia unit. His left lower extre mity was marked as the correct operative side. Informed consent was signed and placed in the chart. The patient was taken to the operating room and placed under spinal anesthesia. A River catheter wa s placed. The patient was placed in the right lateral decubitus position on the peg board. All bony prominences were well padded. Left lower extremity was prepped and draped in the usual sterile fashion. Preop time-out was made to correctly identify the patient, side, and site. Appropriate perioperative antibiotics were given wi thin 1 hour of incision. A 15-cm posterior hip incision was made with a 10-blade and carried down to the subcutaneous fat. El ectrocautery was used to carefully dissect the subcutaneous fat layer, which was at least 10 cm in di ameter. The lateral fascial layer was identified and incised in line with the skin incision. A deep Charnley retractor was placed. The piriformis and conjoint tendons were identified. These were song vated off the posterolateral femur and tagged with two #5 Ethibond. Next, electrocautery was used to make a posterior capsular flap. This flap was also tagged with two #5 Ethibond. The hip was carefu lly dislocated. Lesser troch to center of the femoral head measured 62 mm. Oscillating saw was used to make the appropriate femoral neck cut. Femoral head was carefully removed. The femur was carefully retracted anteriorly. After appropriate placement of the retractor, the acet abulum was visualized. Exposure was made extremely difficult by the patient's morbid obesity. A quiana g-handled knife was used to sharply dissect labrum from the acetabular rim. The acetabulum was seque ntially reamed up to a size 59. Bleeding subchondral bone bed was obtained. The acetabulum was shal low and dysplastic with abnormal wear pattern superolaterally. A 59 trial had good fit. A 60F Tride nt Tritanium hemispherical shell was chosen. This was impacted into the acetabulum and had good stab ility. Appropriate anteversion and abduction angles were obtained. Two screws were placed in the mccord perior posterior quadrant for extra stability. A Trident X3 0-degree polyethylene liner 40F was chos en as the liner. This was impacted into the acetabulum. Stability of the liner was checked and rech ecked and noted to be stable. Next, attention was turned to preparation of the femur. Exposure of the proximal femur was extremely challenging due to patient's morbid obesity. A canal finder was used to enter the proximal femur. The femur was sequentially broached up to a size 5.5. A 5.5 broach had good fit, stability and antev ersion was appropriate. A 132-degree neck trial with a 40 +0 head trial was chosen. The lesser troch to center of the femora l head measured 62 mm and the hip was reduced. Hip was taken through a range of motion and noted to be stable in all positions. Soft tissue tension and leg lengths were deemed to be appropriate. The hip was carefully dislocated. All trials were removed. Final implant chosen was an Accolade TMZF si ze 5.5 with a 132-degree neck angle. This was impacted into the femoral canal without difficulty. T he stem was stable. The stem did sit up 2 mm therefore a 40- 2.5 Biolox ceramic V40 femoral head was chosen as the final implant. This was impacted onto the femoral neck. The hip was reduced and take n through a range of motion. The hip was stable in all positions. The hip was copiously irrigated w ith sterile saline. Previously tagged capsule and tendons were reapproximated to the posterolateral femur through 2 trochanteric drill holes. The hip was once again copiously irrigated. The lateral fascial layer was closed using interrupted # 1 Vicryl. The rest of the incision was closed in a layered fashion using 0 and 2-0 Vicryl. Skin was closed using running 3-0 Monocryl suture and Dermabond. Sterile Adaptic, 4x4s, and paper tape were used to cover the incision. The patient's anesthesia was reversed without difficulty. He was taken to the PACU in stable condition. Intended weightbearing will be weightbearing as tolerated. Intende d DVT prophylaxis will be Coumadin with a Lovenox bridge. [id number]/[facility] #: [id number]
[2017-07-26 05:46] LABS: Hematocrit 30 % (42-52); Hemoglobin 10.3 g/dl (14.0-18.0); Mean Platelet Volume 8 um3 (7.4-10.4); Platelet Count 203 10^3/ul (150-450)
[2017-07-26 05:48] LABS: INR 1.12 (0.77-1.02)
[2017-07-26 05:59] LABS: EGFR Non-African American 92.9 (>60)
[2017-07-26] MEDS: oxyCODONE/Acetamin 5/325 MG* TAB PO PRN ×2 (06:39→10:49)
[2017-07-26] MEDS: Docusate CAP* 100 MG PO SCH (08:38)
[2017-07-26] MEDS: Chlorthalidone TAB* 50 MG PO SCH (08:39)
[2017-07-26 08:41] VITALS: BP 122/67
[2017-07-26] MEDS: Magnesium Hydroxide LIQ* 30 ML UDC PO SCH (09:16)
--- NOTE | 2017-07-26 09:25 | PN ---
Progress Note - Progress Note Date of Service: 07/26/17 SOAP: Subjective: Pt working with PT. No complaint overnight. Pain well controlled. Denies F/C/N/T Vital Signs: Temp Pulse Resp BP Pulse Ox 99.2 F 91 18 122/67 97 07/26/17 07:25 07/26/17 08:41 07/26/17 08:40 07/26/17 08:41 07/26/17 07:25 Laboratory Last Values Hgb 10.3 g/dl (14.0-18.0) L 07/26/17 05:13 Hct 30 % (42-52) L 07/26/17 05:13 Plt Count 203 10^3/ul (150-450) 07/26/17 05:13 MPV 8 um3 (7.4-10.4) 07/26/17 05:13 INR (Anticoag Therapy) 1.12 (0.77-1.02) H 07/26/17 05:13 Sodium 133 mmol/L (133-145) 07/26/17 05:13 Potassium 3.8 mmol/L (3.5-5.0) 07/26/17 05:13 Chloride 97 mmol/L (101-111) L 07/26/17 05:13 Carbon Dioxide 32 mmol/L (22-32) 07/26/17 05:13 Anion Gap 4 mmol/L (2-11) 07/26/17 05:13 BUN 17 mg/dL (6-24) 07/26/17 05:13 Creatinine 0.85 mg/dL (0.67-1.17) 07/26/17 05:13 Est GFR ( Amer) 119.5 (>60) 07/26/17 05:13 Est GFR (Non-Af Amer) 92.9 (>60) 07/26/17 05:13 BUN/Creatinine Ratio 20.0 (8-20) 07/26/17 05:13 Glucose 125 mg/dL (70-100) H 07/26/17 05:13 Calcium 8.6 mg/dL (8.6-10.3) 07/26/17 05:13 Urine Color Yellow 07/24/17 17:00 Urine Appearance Cloudy 07/24/17 17:00 Urine pH 5.0 (5-9) 07/24/17 17:00 Ur Specific [place] 1.026 (1.010-1.030) 07/24/17 17:00 Urine Protein 1+(30 mg/dl) (Negative) A 07/24/17 17:00 Urine Ketones Trace (Negative) A 07/24/17 17:00 Urine Blood Negative (Negative) 07/24/17 17:00 Urine Nitrate Negative (Negative) 07/24/17 17:00 Urine Bilirubin Negative (Negative) 07/24/17 17:00 Urine Urobilinogen Negative (Negative) 07/24/17 17:00 Ur Leukocyte Esterase Negative (Negative) 07/24/17 17:00 Urine WBC (Auto) Trace(0-5/hpf) (Absent) 07/24/17 17:00 Urine RBC (Auto) 2+(6-10/hpf) (Absent) A 07/24/17 17:00 Ur Squamous Epith Cells Present (Absent) A 07/24/17 17:00 Amorphous Crystals Present (Absent) A 07/24/17 17:00 Urine Bacteria 1+ (Absent) A 07/24/17 17:00 Hyaline Casts Present (Absent) A 07/24/17 17:00 Urine Glucose Negative (Negative) 07/24/17 17:00 Urine Ascorbic Acid * (Negative) A 07/24/17 17:00 Objective: Calves soft, Nontender. Dressing changed, incision C/D/I. No edema. DP pulses 2+ . Sensation intact to lite touch. Assessment: 57 yo male s/p Left ANGIE POD#2 Plan: PT/OT WBAT Pain control DVT prophylaxis - Coumadin 8 mg tonight D/C home today
--- NOTE | 2017-07-26 10:43 | PN ---
Subjective Date of Service: 07/26/17 Interval History: Patient seen and examined at bedside. Denies fever, chills, lightheadedness or dizziness, shortness of breath, chest discomfort, N/V/D. Pt states that his pain is mostly controlled. Family History: Unchanged from Admission Social History: Unchanged from Admission Past Medical History: Unchanged from Admission Objective Active Medications: Acetaminophen (Tylenol Tab*) 650 mg PO Q4H PRN Reason: PAIN OR TEMPERATURE Bisacodyl (Dulcolax Supp*) 10 mg ME DAILY PRN Reason: constipation Chlorthalidone (Hygroton Tab*) 25 mg PO DAILY WEN Cyclobenzaprine HCl (Flexeril Tab*) 10 mg PO TID PRN Reason: SPASMS Diphenhydramine HCl (Benadryl Iv*) 12.5 mg IV Q6H PRN Reason: PRURITIS Docusate Sodium (Colace Cap*) 100 mg PO BID WEN Enoxaparin Sodium (Lovenox(*)) 40 mg SUBCUT Q24H WEN Lactulose (Lactulose*) 30 ml PO Q6H PRN Reason: constipation Lisinopril (Prinivil Tab*) 10 mg PO QPM WEN Magnesium Hydroxide (Milk Of Magnesia Liq*) 30 ml PO BID WEN Magnesium Hydroxide (Milk Of Magnesia Liq*) 30 ml PO Q6H PRN Reason: constipation Morphine Sulfate (Morphine Inj (Syringe)*) 2 mg IV Q2H PRN Reason: PAIN Ondansetron HCl (Zofran Inj*) 4 mg IV Q6H PRN Reason: nausea Ondansetron HCl (Zofran Tab*) 4 mg PO Q6H PRN Reason: NAUSEA Oxycodone HCl (Roxycodone Tab*) 10 mg PO Q4H PRN Reason: SEVERE PAIN Oxycodone/Acetaminophen (Percocet 5/325 Tab*) 2 tab PO Q4H PRN Reason: PAIN Oxycodone/Acetaminophen (Percocet 5/325 Tab*) 1 tab PO Q4H PRN Reason: PAIN Pharmacy Profile Note (Coumadin Daily Reminder*) 1 note FOLLOW UP 1700 WEN Polyethylene Glycol/Electrolytes (Miralax*) 17 gm PO DAILY PRN Reason: Constipation Scopolamine (Transderm-Scop 1.5 Mg Patch*) 1 patch TRANSDERM Q72H WEN Vital Signs - 8 hr 07/26/17 07/26/17 07/26/17 03:14 03:52 06:39 Temperature 98.7 F Pulse Rate 66 Respiratory 16 16 Rate Blood Pressure 148/78 (mmHg) O2 Sat by Pulse 98 99 Oximetry 07/26/17 07/26/17 07/26/17 07:25 08:00 08:40 Temperature 99.2 F Pulse Rate 83 Respiratory 16 18 18 Rate Blood Pressure 105/50 (mmHg) O2 Sat by Pulse 97 Oximetry 07/26/17 08:41 Temperature Pulse Rate 91 Respiratory Rate Blood Pressure 122/67 (mmHg) O2 Sat by Pulse Oximetry Oxygen Devices in Use Now: None Appearance: NAD, sitting up in a chair Ears/Nose/Mouth/Throat: Mucous Membranes Moist Respiratory: Symmetrical Chest Expansion and Respiratory Effort, Clear to Auscultation Cardiovascular: NL Sounds; No Murmurs; No JVD, RRR Abdominal: NL Sounds; No Tenderness; No Distention Neurological: Alert and Oriented x 3, NL Muscle Strength and Tone Lines/Tubes/Other Access: Clean, Dry and Intact Peripheral IV - site benign Nutrition: Taking PO's Result Diagrams: 07/26/17 05:13 07/26/17 05:13 Microbiology and Other Data: Microbiology 07/24/17 17:00 Urine Culture - Final Urine No Growth (<1,000 CFU/mL) Assess/Plan/Problems-Billing Assessment: Mr. Dc is a 57 yo male with PMH significant for HTN, obesity, basal cell CA and osteoarthritis who presented to the hospital for an elective left total hip arthroplasty with Dr. Levi. - Patient Problems (1) Status post total hip replacement, left Status: Acute Code(s): Z96.642 - PRESENCE OF LEFT ARTIFICIAL HIP JOINT SNOMED Code(s): 073769300692 Comment: - POD #2, management per ortho - HH stable, continue to trend - Continue PT, OT, pain management and bowel regimen (2) HTN (hypertension) Code(s): I10 - ESSENTIAL (PRIMARY) HYPERTENSION SNOMED Code(s): 29348381 Comment: - SBP 100-140's - Continue home chlorthalidone and lisinopril (3) Obesity Code(s): E66.9 - OBESITY, UNSPECIFIED SNOMED Code(s): 864842767 Comment: - BMI 40 (4) Basal cell carcinoma (BCC) Code(s): C44.91 - BASAL CELL CARCINOMA OF SKIN, UNSPECIFIED SNOMED Code(s): 151002449 Comment: - Continue to follow with PCP (5) DVT prophylaxis Code(s): COD3710 - SNOMED Code(s): 111565966 Comment: - Lovenox bridge to warfarin (6) Full code status Code(s): Z78.9 - OTHER SPECIFIED HEALTH STATUS SNOMED Code(s): 231979513 Status and Disposition: Inpatient. Disposition per orthopedic surgery.
[2017-07-26] MEDS: Enoxaparin(*) 40 MG/0.4 ML SYR SUBCUT SCH (10:50)
--- NOTE | 2017-07-27 02:21 | DS ---
AMENDED REPORT NOW INCLUDES COSIGNER DESIGNATION - ESIGNED BEFORE ADJUSTMENT DISCHARGE SUMMARY: DATE OF ADMISSION: 07/24/17 DATE OF DISCHARGE: 07/26/17 ATTENDING PHYSICIAN: Dr. Michelle Levi.* (DICTATED BY NIKKO RAY) PRINCIPAL DIAGNOSIS: Left hip osteoarthritis. SECONDARY DIAGNOSES: Hypertension and obesity. PRINCIPAL PROCEDURE: Left total hip arthroplasty. REASON FOR HOSPITALIZATION: Jeanmarie is a 57-year-old male with persistent pain in his left hip secondary to end-stage osteoarthritis. He has failed conservative management and has elected to proceed with a left total hip arthroplasty, which was scheduled on 07/24/[address] Levi. HOSPITAL COURSE: The patient was admitted to the hospital on 07/24/17 for anticipated surgery. The patient underwent left total hip arthroplasty on 07/[address] Levi without any complications. He was taken to the recovery room and subsequently the surgical stay unit in a stable condition. The patient had participated with occupational and physical therapy throughout the hospital course and has done well. The patient's vital signs remained stable throughout the hospital course including remaining afebrile. Daily hemoglobin and hematocrit was drawn. His hemoglobin was 10.3 and hematocrit was 30 on the day of discharge. The patient had blood draw for INR daily for Coumadin dosing. The patient's INR was 1.12 on the day of discharge and was discharged on 8 mg of Coumadin. The patient has had no other complications throughout his hospital course and was discharged to home in a stable condition on 07/26/17. DISCHARGE INSTRUCTIONS: Weightbearing as tolerated. Wound care okay to shower on postop day #3. No bathing, swimming, submerging wound, use gentle soap, pat dry, cover with gauze, Casey wrap or tape. Call orthopedic office for increased drainage, redness, increased pain or fever, go to the ER with shortness of breath or chest pain. DIET: Regular diet, increase fluids and fiber to prevent constipation. Continue to use stool softeners, call office if no bowel movement within 48 hours. Continue hip precautions; do not cross legs or bend greater than 90 degrees or squat. Continue physical therapy and occupational therapy. Exercises as shown. Visiting home nurse to do wound checks. Visiting home nurse to draw blood work for INR on Mondays and . Coumadin dosin mg of Coumadin on 07/26/17 and 07/27/17 to be redrawn on 07/28/17. Pain control with Percocet 5/325 mg 1 to 2 tabs by mouth every 4 to 6 hours as needed for pain, maximum of 10 tablets per day. Antibiotics required prior to any dental work. Follow up with Dr. Levi 10 to 14 days postop. Call the orthopedic office for an appointment. NIKKO RAY [id number]/[facility] #: [id number] NBA
--- NOTE | 2017-07-28 09:42 | RAD ---
Indication: Post LEFT total hip replacement. Comparison: AP and crosstable lateral views LEFT hip 1547 hours Technique: Low AP pelvis and proximal femurs. Report: Unremarkable alignment of the LEFT total hip prosthesis in the AP projection with normal location confirmed on orthogonal views of the same date. No periprosthetic fracture evident. Overlying soft tissue edema. Unremarkable appearance of the RIGHT hip total prosthesis in the AP projection. IMPRESSION: Unremarkable immediate postop appearance of the LEFT total hip prosthesis.
== END 2017-07-26 11:10 | disposition home health service (06) | DRG 301 ==
LOC: AA 09:13 → SSU 12:39
PROVIDERS: ADMIT Orthopaedic Surgery Adult Reconstructive Orthopaedic Surgery; ATTEND Orthopaedic Surgery Adult Reconstructive Orthopaedic Surgery
PROC: 0SRB02A Replacement of Left Hip Joint with Metal on Polyethylene Synthetic Substitute, Uncemented, Open Approach (ICD-10-PCS; principal; 2017-07-24 12:00)
DX: M16.12 Unilateral primary osteoarthritis, left hip (principal); Z68.41 Body mass index [BMI] 40.0-44.9, adult; E66.01 Morbid (severe) obesity due to excess calories; Q65.89 Other specified congenital deformities of hip; M25.852 Other specified joint disorders, left hip; I10 Essential (primary) hypertension; Z96.641 Presence of right artificial hip joint; Z85.828 Personal history of other malignant neoplasm of skin; Z79.899 Other long term (current) drug therapy; Z82.49 Family history of ischemic heart disease and other diseases of the circulatory system
CPT/HCPCS: 36415; 72170; 80048; 81003; 81015; 85014; 85018; 85049; 85610; 87086; 88304; 88311; 94760; A9270-GY; C1713; C1776; G8987-GO-CI; G8988-GO-CI; G8989-GO-CI; J0690; J1100; J1240; J1650; J1885; J2250; J2405; J2704; J3010